=== PATIENT | female | born 1980 | race Caucasian/White ===

== ENCOUNTER 2019-07-11 15:35 | Outpatient (CLI) | payer BC ==
--- NOTE | 2019-07-11 15:52 | RAD ---
EXAM: CHEST TWO VIEWS: 07/11/19 HISTORY: Cough for several weeks with lower right chest pain. FINDINGS: Heart size is within normal limits The lungs are clear. IMPRESSION: No significant acute intrathoracic disease. No evidence for pneumonia. POS: [facility]
== END 2019-07-11 15:36 | disposition home or self-care (01) ==
LOC: BICRAD 15:35
PROVIDERS: ATTEND Nurse Practitioner Family
DX: R05 Cough (principal)
CPT/HCPCS: 71046